=== PATIENT | female | born 1955 | race Caucasian/White ===

== ENCOUNTER 2018-01-28 19:05 | Emergency (ER) | payer MEDICAID ==
[~2018-01-28] VITALS: Ht 152.4 cm; Wt 80.7 kg
[2018-01-28 19:33] VITALS: Ht 152.4 cm; Wt 80.7 kg
[2018-01-28 20:05] VITALS: BP 137/105
== END 2018-01-28 20:05 | disposition home or self-care (01) ==
LOC: ED 19:05
DX: N61.1 Abscess of the breast and nipple (principal); T63.301A Toxic effect of unspecified spider venom, accidental (unintentional), initial encounter; Y92.9 Unspecified place or not applicable